=== PATIENT | male | born 1960 | race Caucasian/White ===

== ENCOUNTER 2021-07-30 13:56 | Inpatient (IN) | payer MEDICAID ==
[~2021-07-30] VITALS: Ht 172.7 cm; Wt 80.4 kg
[2021-07-30] MEDS ORDERED: IV NORMAL SALINE 1000 ML BAG IV ONE (14:15)
[2021-07-30 15:43] LABS: CREATININE 0.7 mg/dL (0.6-1.3); POTASSIUM 3.6 mmol/L (3.5-5.1)
[2021-07-30 15:55] LABS: BILIRUBIN,DIRECT 0.2 mg/dL (0.0-0.2); BILIRUBIN,TOTAL 0.5 mg/dL (0.2-1.0); TOTAL PROTEIN, SERUM 7.2 g/dL (6.4-8.2)
[2021-07-30 16:03] LABS: *BILIRUBIN,URIN NEGATIVE (NEGATIVE); *BLOOD, URINE 2+ (NEGATIVE); *CLARITY,URINE SLIGHTLY CLOUDY (CLEAR); *COLOR,URINE YELLOW (YELLOW); *KETONES,URINE NEGATIVE (NEGATIVE); *UROBILINOGEN,URINE 0.2 E.U./dl (NORMAL); LEUKOCYTE ESTERASE ,URINE 1+ (NEGATIVE); NITRITE, URINE POSITIVE (NEGATIVE); UGLUCOSE NEGATIVE (NEGATIVE)
[2021-07-30 16:16] LABS: WBC,URINE 50-80 /HPF (0-3)
[2021-07-30 16:17] LABS: MUCUS,URINE FEW /LPF (0-FEW); SQUAMOUS EPITHELIAL CELL,UR NONE SEEN /HPF (NONE SEEN)
[2021-07-30 16:18] LABS: BACTERIA,URINE MODERATE /HPF (NONE SEEN)
[2021-07-30 16:23] LABS: HEMATOCRIT 23.7 % (36.7-47.1); MEAN CORPUSCULAR HEMOGLOBIN 27.4 uug (23.8-33.4); MEAN CORPUSCULAR VOLUME 84.2 fL (73.0-96.2); PLATELET COUNT (AUTO) 284 K/uL (152-348)
[2021-07-30] MEDS ORDERED: IV NS 1000 ML 1,000 ML IV ONE (16:45)
[2021-07-30] MEDS ORDERED: MEROPENEM 1,000 MG in IV NORMAL SALINE 100 ML IV ONE (16:45)
[2021-07-30] MEDS ORDERED: MEROPENEM 1GM/NS 100ML IVPB **ER PYXIS ONLY IV ONE (16:57)
[2021-07-30] MEDS ORDERED: AZITHROMYCIN IV 500 MG in IV DEXTROSE 5% 250 ML IV ONE (18:00)
[2021-07-30] MEDS ORDERED: AZITHROMYCIN 500MG/ D5W 250ML IVPB **ER PYXIS ONLY IV ONE (18:13)
[2021-07-31 02:00] VITALS: BP 90/50
[2021-07-31] MEDS ORDERED: MEROPENEM 0.5 G in IV NORMAL SALINE 50 ML IV ONE ×2 (04:15→12:00)
[2021-07-31] MEDS ORDERED: MEROPENEM 500MG/NS 50ML PB ***ER PYXIS ONLY IV ONE (04:43)
[2021-07-31 04:51] VITALS: BP 98/50
[2021-07-31] MEDS ORDERED: CEFTRIAXONE 1 G in IV DEXTROSE 5% 50 ML IV SCH ×2 (05:30→09:00)
[2021-07-31] MEDS ORDERED: MEROPENEM 0.5 G in IV NORMAL SALINE 50 ML IV SCH (06:00)
[2021-07-31 08:25] LABS: HEMATOCRIT 22.8 % (36.7-47.1); MEAN CORPUSCULAR HEMOGLOBIN 27.4 uug (23.8-33.4); MEAN CORPUSCULAR VOLUME 84.5 fL (73.0-96.2); PLATELET COUNT (AUTO) 285 K/uL (152-348)
[2021-07-31 08:26] LABS: CARBON DIOXIDE 26 mmol/L (21-32); CHLORIDE 106 mmol/L (98-107); CREATININE 0.6 mg/dL (0.6-1.3); GLUCOSE 134 mg/dL (74-106); POTASSIUM 3.2 mmol/L (3.5-5.1); UREA NITROGEN, BLOOD 44 mg/dL (7-18)
[2021-07-31] MEDS ORDERED: CEFTRIAXONE 1 G VIAL IV SCH (09:00)
[2021-07-31] MEDS ORDERED: CHOL4PAC2 GT (11:32)
[2021-07-31] MEDS ORDERED: RIVA10TA PO (11:32)
[2021-07-31] MEDS ORDERED: SERT25TA PO (11:32)
[2021-07-31] MEDS ORDERED: FINA5TAB11 PO (11:32)
[2021-07-31] MEDS ORDERED: SACC250C PO (11:32)
[2021-07-31] MEDS ORDERED: FERR325T28 PO (11:32)
[2021-07-31] MEDS ORDERED: QUET25TA PO (11:32)
[2021-07-31] MEDS ORDERED: PIPE3.379 IV (11:32)
[2021-07-31] MEDS ORDERED: METO25TA6 PO (11:32)
[2021-07-31] MEDS ORDERED: BETH25TA2 GT (11:32)
[2021-07-31] MEDS ORDERED: FERR325T28 (11:32)
[2021-07-31] MEDS ORDERED: FAMO20TA8 PO (11:32)
[2021-07-31 12:21] VITALS: BP 99/55
[2021-07-31] MEDS: POTASSIUM CHLORIDE 50 ML IV SCH ×4 (12:26→19:24)
[2021-07-31] MEDS ORDERED: FERR300L GT (12:48)
[2021-07-31 16:10] VITALS: BP 102/57
[2021-07-31] MEDS: AZITHROMYCIN 250 MG TABLET GT SCH (17:38)
[2021-07-31] MEDS ORDERED: AZITHROMYCIN IV 500 MG in IV DEXTROSE 5% 250 ML IV SCH ×2 (18:00→21:00)
[2021-07-31 20:00] VITALS: BP 98/31
[2021-07-31] MEDS: PIPERACILLIN SODIUM/TAZOBACTAM 3.375 G in IV DEXTROSE 5% 100 ML IV SCH (21:26)
[2021-08-01] VITALS: BP 98/39
[2021-08-01] MEDS ORDERED: VANCOMYCIN IV 1,500 MG in IV DEXTROSE 5% 500 ML IV ONE (00:30)
[2021-08-01] MEDS ORDERED: VANCOMYCIN 1000 MG VIAL ONE (01:47)
[2021-08-01] MEDS ORDERED: VANCOMYCIN HCL 500 MG VIAL ONE (01:47)
[2021-08-01 04:00] VITALS: BP 100/39
[2021-08-01] MEDS: PIPERACILLIN SODIUM/TAZOBACTAM 3.375 G in IV DEXTROSE 5% 100 ML IV SCH ×2 (06:00→22:42)
[2021-08-01] MEDS ORDERED: VANCOMYCIN IV 1,000 MG in IV DEXTROSE 5% 250 ML IV SCH (10:00)
[2021-08-01 12:00] VITALS: BP 86/46
[2021-08-01 15:08] LABS: CARBON DIOXIDE 26 mmol/L (21-32); CHLORIDE 107 mmol/L (98-107); CREATININE 0.6 mg/dL (0.6-1.3); GLUCOSE 160 mg/dL (74-106); POTASSIUM 3.5 mmol/L (3.5-5.1); UREA NITROGEN, BLOOD 38 mg/dL (7-18)
[2021-08-01 16:00] VITALS: BP 89/50
[2021-08-01] MEDS: FERROUS SULFATE 300 MG/5 ML LIQUID UDC GT SCH (16:03)
[2021-08-01] MEDS: ARGININE/GLUTAMINE/CALCIUM BMB 1 EACH POWD.PACK GT SCH (16:04)
[2021-08-01] MEDS: CHOLESTYRAMINE/SUCROSE 4 GM PACKET XX SCH (16:04)
[2021-08-01] MEDS: FAMOTIDINE 20 MG TABLET PO SCH (16:04)
[2021-08-01] MEDS: AZITHROMYCIN 250 MG TABLET GT SCH (17:05)
[2021-08-01] MEDS: ACETAMINOPHEN 650 MG/20.3 ML LIQUID UDC GT PRN (17:06)
[2021-08-01] MEDS: RIVAROXABAN 10 MG TABLET PO SCH (20:34)
[2021-08-01] MEDS: SERTRALINE HCL 50 MG TABLET PO SCH (20:35)
[2021-08-01] MEDS: QUETIAPINE FUMARATE 25 MG TABLET PO SCH (20:35)
[2021-08-01] MEDS: METOPROLOL TARTRATE 25 MG TABLET PO SCH (20:37)
[2021-08-01] MEDS: VANCOMYCIN IV 1,000 MG in IV DEXTROSE 5% 250 ML IV SCH (21:34)
[2021-08-01 21:37] VITALS: BP 120/54
[2021-08-02 00:04] VITALS: BP 100/41
[2021-08-02 04:12] VITALS: BP 97/45
[2021-08-02] MEDS: PIPERACILLIN SODIUM/TAZOBACTAM 3.375 G in IV DEXTROSE 5% 100 ML IV SCH (05:37)
[2021-08-02] MEDS: VANCOMYCIN IV 1,000 MG in IV DEXTROSE 5% 250 ML IV SCH ×3 (05:37→23:00)
[2021-08-02] MEDS: METOPROLOL TARTRATE 25 MG TABLET PO SCH ×2 (09:00→21:00)
[2021-08-02 09:34] LABS: CARBON DIOXIDE 26 mmol/L (21-32); CHLORIDE 107 mmol/L (98-107); CREATININE 0.5 mg/dL (0.6-1.3); GLUCOSE 145 mg/dL (74-106); POTASSIUM 2.9 mmol/L (3.5-5.1); UREA NITROGEN, BLOOD 30 mg/dL (7-18)
[2021-08-02] MEDS: FERROUS SULFATE 300 MG/5 ML LIQUID UDC GT SCH ×2 (09:50→15:53)
[2021-08-02] MEDS: QUETIAPINE FUMARATE 25 MG TABLET PO SCH ×2 (09:51→21:39)
[2021-08-02] MEDS: CHOLESTYRAMINE/SUCROSE 4 GM PACKET XX SCH ×2 (09:51→15:54)
[2021-08-02] MEDS: FAMOTIDINE 20 MG TABLET PO SCH ×2 (09:51→15:53)
[2021-08-02] MEDS: FINASTERIDE 5 MG TABLET PO SCH (09:51)
[2021-08-02] MEDS: ARGININE/GLUTAMINE/CALCIUM BMB 1 EACH POWD.PACK GT SCH ×2 (10:01→15:54)
[2021-08-02 11:00] VITALS: BP 105/50
[2021-08-02] MEDS: POTASSIUM CHLORIDE 50 ML IV SCH ×4 (13:35→16:15)
[2021-08-02] MEDS: PIPERACILLIN SODIUM/TAZOBACTAM 3.375 G in IV DEXTROSE 5% 50 ML IV SCH ×2 (13:39→22:14)
[2021-08-02] MEDS: AZITHROMYCIN 250 MG TABLET GT SCH (15:53)
[2021-08-02 16:00] VITALS: BP 95/45
[2021-08-02 20:00] VITALS: BP 94/56
[2021-08-02] MEDS: ACETAMINOPHEN 650 MG/20.3 ML LIQUID UDC GT PRN (21:00)
[2021-08-02] MEDS: SERTRALINE HCL 50 MG TABLET PO SCH (21:39)
[2021-08-02] MEDS: RIVAROXABAN 10 MG TABLET PO SCH (21:42)
[2021-08-02] MEDS: SODIUM HYPOCHLORITE 0.25% (HALF STRENGTH) 480 ML BOTTLE TOP SCH (23:05)
[2021-08-03] MEDS: PIPERACILLIN SODIUM/TAZOBACTAM 3.375 G in IV DEXTROSE 5% 50 ML IV SCH ×2 (05:00→12:14)
[2021-08-03] MEDS: VANCOMYCIN IV 1,000 MG in IV DEXTROSE 5% 250 ML IV SCH (05:15)
[2021-08-03 06:43] LABS: HEMATOCRIT 24.7 % (36.7-47.1); MEAN CORPUSCULAR HEMOGLOBIN 26.8 uug (23.8-33.4); PLATELET COUNT (AUTO) 292 K/uL (152-348)
[2021-08-03 07:02] VITALS: BP 100/54
[2021-08-03 07:02] LABS: CARBON DIOXIDE 26 mmol/L (21-32); CHLORIDE 107 mmol/L (98-107); CREATININE 0.6 mg/dL (0.6-1.3); GLUCOSE 120 mg/dL (74-106); MAGNESIUM 2.2 mg/dL (1.8-2.4); PHOSPHOROUS 2.4 mg/dL (2.5-4.9); UREA NITROGEN, BLOOD 22 mg/dL (7-18)
[2021-08-03 08:39] LABS: POTASSIUM 2.7 mmol/L (3.5-5.1)
[2021-08-03] MEDS: FAMOTIDINE 20 MG TABLET PO SCH ×2 (08:41→16:20)
[2021-08-03] MEDS: FINASTERIDE 5 MG TABLET PO SCH (08:41)
[2021-08-03] MEDS: QUETIAPINE FUMARATE 25 MG TABLET PO SCH ×2 (08:41→20:52)
[2021-08-03] MEDS: METOPROLOL TARTRATE 25 MG TABLET PO SCH ×2 (09:00→20:54)
[2021-08-03] MEDS: CHOLESTYRAMINE/SUCROSE 4 GM PACKET XX SCH ×2 (09:34→16:20)
[2021-08-03] MEDS: ARGININE/GLUTAMINE/CALCIUM BMB 1 EACH POWD.PACK GT SCH ×2 (09:35→16:20)
[2021-08-03] MEDS: FERROUS SULFATE 300 MG/5 ML LIQUID UDC GT SCH ×2 (09:35→16:19)
[2021-08-03] MEDS: SODIUM HYPOCHLORITE 0.25% (HALF STRENGTH) 480 ML BOTTLE TOP SCH (09:35)
[2021-08-03 12:00] VITALS: BP 96/49
[2021-08-03] MEDS: POTASSIUM CHLORIDE 50 ML IV SCH ×8 (12:14→20:28)
[2021-08-03] MEDS: CEFEPIME HCL 1 G in IV DEXTROSE 5% 50 ML IV SCH (16:04)
[2021-08-03 16:07] VITALS: BP 98/50
[2021-08-03] MEDS ORDERED: NEUTRA PHOS PACKET PO ONE (16:15)
[2021-08-03] MEDS: SERTRALINE HCL 50 MG TABLET PO SCH (20:52)
[2021-08-03] MEDS: ACIDOPHILUS/BULGARICUS CHEW TAB GT SCH (20:52)
[2021-08-03] MEDS: RIVAROXABAN 10 MG TABLET PO SCH (20:53)
[2021-08-03 20:59] VITALS: BP 80/39
[2021-08-03] MEDS ORDERED: VITAL AF 1.2 1,000 ML LIQUID GT PRN (21:30)
[2021-08-03 22:50] VITALS: BP 87/50
[2021-08-03] MEDS ORDERED: IV NORMAL SALINE 250 ML IV ONE (23:00)
[2021-08-04] MEDS: CEFEPIME HCL 1 G in IV DEXTROSE 5% 50 ML IV SCH ×3 (00:20→16:28)
[2021-08-04 04:32] VITALS: BP 157/65
[2021-08-04 07:21] LABS: HEMATOCRIT 24.6 % (36.7-47.1); MEAN CORPUSCULAR HEMOGLOBIN 26.7 uug (23.8-33.4); MEAN CORPUSCULAR VOLUME 83.7 fL (73.0-96.2); PLATELET COUNT (AUTO) 251 K/uL (152-348)
[2021-08-04 07:37] LABS: CARBON DIOXIDE 26 mmol/L (21-32); CHLORIDE 111 mmol/L (98-107); CREATININE 0.4 mg/dL (0.6-1.3); GLUCOSE 114 mg/dL (74-106); MAGNESIUM 2.3 mg/dL (1.8-2.4); PHOSPHOROUS 2.8 mg/dL (2.5-4.9); POTASSIUM 3.6 mmol/L (3.5-5.1); UREA NITROGEN, BLOOD 19 mg/dL (7-18); VANCOMYCIN,RANDOM 17.6 ug/mL (18.0-26.0)
[2021-08-04] MEDS ORDERED: VANCOMYCIN IV 750 MG in IV DEXTROSE 5% 250 ML IV ONE (08:00)
[2021-08-04] MEDS: METOPROLOL TARTRATE 25 MG TABLET PO SCH ×2 (09:00→20:20)
[2021-08-04] MEDS: FAMOTIDINE 20 MG TABLET PO SCH ×2 (09:17→17:19)
[2021-08-04] MEDS: ACIDOPHILUS/BULGARICUS CHEW TAB GT SCH ×2 (09:17→20:12)
[2021-08-04] MEDS: FERROUS SULFATE 300 MG/5 ML LIQUID UDC GT SCH ×2 (09:17→17:20)
[2021-08-04] MEDS: FINASTERIDE 5 MG TABLET PO SCH (09:17)
[2021-08-04] MEDS: QUETIAPINE FUMARATE 25 MG TABLET PO SCH ×2 (09:17→20:12)
[2021-08-04] MEDS: SODIUM HYPOCHLORITE 0.25% (HALF STRENGTH) 480 ML BOTTLE TOP SCH (09:18)
[2021-08-04] MEDS: ARGININE/GLUTAMINE/CALCIUM BMB 1 EACH POWD.PACK GT SCH ×2 (09:29→17:21)
[2021-08-04] MEDS: CHOLESTYRAMINE/SUCROSE 4 GM PACKET XX SCH ×2 (09:30→17:21)
[2021-08-04 11:41] VITALS: BP 91/53
[2021-08-04 15:32] VITALS: BP 96/49
[2021-08-04] MEDS: ACETAMINOPHEN 650 MG/20.3 ML LIQUID UDC GT PRN (17:37)
[2021-08-04 20:00] VITALS: BP 96/47
[2021-08-04] MEDS: SERTRALINE HCL 50 MG TABLET PO SCH (20:12)
[2021-08-04] MEDS: RIVAROXABAN 10 MG TABLET PO SCH (20:16)
[2021-08-05] MEDS: CEFEPIME HCL 1 G in IV DEXTROSE 5% 50 ML IV SCH ×3 (00:16→16:30)
[2021-08-05 04:00] VITALS: BP 98/54
[2021-08-05 06:48] LABS: HEMATOCRIT 24.5 % (36.7-47.1); MEAN CORPUSCULAR HEMOGLOBIN 26.2 uug (23.8-33.4); MEAN CORPUSCULAR VOLUME 84.2 fL (73.0-96.2); PLATELET COUNT (AUTO) 279 K/uL (152-348)
[2021-08-05 07:34] LABS: CARBON DIOXIDE 25 mmol/L (21-32); CHLORIDE 109 mmol/L (98-107); CREATININE 0.4 mg/dL (0.6-1.3); GLUCOSE 123 mg/dL (74-106); POTASSIUM 3.2 mmol/L (3.5-5.1); UREA NITROGEN, BLOOD 19 mg/dL (7-18); VANCOMYCIN,RANDOM 13.6 ug/mL (18.0-26.0)
[2021-08-05 08:15] VITALS: BP 110/53
[2021-08-05] MEDS: METOPROLOL TARTRATE 25 MG TABLET PO SCH (09:00)
[2021-08-05] MEDS ORDERED: VANCOMYCIN IV 1,000 MG in IV DEXTROSE 5% 250 ML IV ONE (09:00)
[2021-08-05] MEDS: FERROUS SULFATE 300 MG/5 ML LIQUID UDC GT SCH ×2 (09:11→17:23)
[2021-08-05] MEDS: FAMOTIDINE 20 MG TABLET PO SCH ×2 (09:11→17:23)
[2021-08-05] MEDS: ACIDOPHILUS/BULGARICUS CHEW TAB GT SCH (09:11)
[2021-08-05] MEDS: FINASTERIDE 5 MG TABLET PO SCH (09:11)
[2021-08-05] MEDS: QUETIAPINE FUMARATE 25 MG TABLET PO SCH (09:11)
[2021-08-05] MEDS: ARGININE/GLUTAMINE/CALCIUM BMB 1 EACH POWD.PACK GT SCH ×2 (09:12→17:24)
[2021-08-05] MEDS: CHOLESTYRAMINE/SUCROSE 4 GM PACKET XX SCH ×2 (09:15→17:23)
[2021-08-05] MEDS: SODIUM HYPOCHLORITE 0.25% (HALF STRENGTH) 480 ML BOTTLE TOP SCH (09:16)
[2021-08-05] MEDS ORDERED: POTASSIUM CHLORIDE 20 MEQ POWDER PACKET GT ONE (11:15)
[2021-08-05 12:00] VITALS: BP 105/48
[2021-08-05] MEDS ORDERED: RXVAN XX (13:31)
[2021-08-05] MEDS ORDERED: NUTR1PAC14 GT (13:31)
[2021-08-05] MEDS ORDERED: ACID1TAB4 GT (13:31)
[2021-08-05] MEDS ORDERED: NUT.237L65 GT (13:31)
[2021-08-05] MEDS ORDERED: SODI480S2 TOP (13:31)
[2021-08-05] MEDS ORDERED: CEFE1FRO IV (13:31)
[2021-08-05 16:00] VITALS: BP 119/59
== END 2021-08-05 19:40 | DRG 710 ==
LOC: ER 13:56 → TELE3 07-31 01:23 → MEDSURG3 08-02 10:50
PROVIDERS: ADMIT Nurse Practitioner Acute Care; ATTEND Nurse Practitioner Acute Care
PROC: 5A1955Z Respiratory Ventilation, Greater than 96 Consecutive Hours (ICD-10-PCS; 2021-07-31)
PROC: 05HY33Z Insertion of Infusion Device into Upper Vein, Percutaneous Approach (ICD-10-PCS; 2021-08-02)
PROC: 0KBN0ZZ Excision of Right Hip Muscle, Open Approach (ICD-10-PCS; principal; 2021-08-03)
PROC: 0KBP0ZZ Excision of Left Hip Muscle, Open Approach (ICD-10-PCS; 2021-08-03)
PROC: 02HV33Z Insertion of Infusion Device into Superior Vena Cava, Percutaneous Approach (ICD-10-PCS; 2021-08-05)
PROC: B548ZZA Ultrasonography of Superior Vena Cava, Guidance (ICD-10-PCS; 2021-08-05)
DX: A41.9 Sepsis, unspecified organism (principal); N17.0 Acute kidney failure with tubular necrosis; J96.21 Acute and chronic respiratory failure with hypoxia; G82.50 Quadriplegia, unspecified; G93.41 Metabolic encephalopathy; E43 Unspecified severe protein-calorie malnutrition; L89.154 Pressure ulcer of sacral region, stage 4; D68.59 Other primary thrombophilia; L89.613 Pressure ulcer of right heel, stage 3; R16.2 Hepatomegaly with splenomegaly, not elsewhere classified; L89.324 Pressure ulcer of left buttock, stage 4; E87.1 Hypo-osmolality and hyponatremia; E88.09 Other disorders of plasma-protein metabolism, not elsewhere classified; L89.226 Pressure-induced deep tissue damage of left hip; K21.9 Gastro-esophageal reflux disease without esophagitis; N40.0 Benign prostatic hyperplasia without lower urinary tract symptoms; Z95.0 Presence of cardiac pacemaker; Z93.0 Tracheostomy status; Z74.09 Other reduced mobility; N13.2 Hydronephrosis with renal and ureteral calculous obstruction; R13.10 Dysphagia, unspecified; Z93.1 Gastrostomy status; E87.6 Hypokalemia; I50.33 Acute on chronic diastolic (congestive) heart failure; I42.9 Cardiomyopathy, unspecified; K52.9 Noninfective gastroenteritis and colitis, unspecified
CPT/HCPCS: 36415; 70030-TC; 71045; 83605; 83735; 84100; 85025; 85730; 87040; 87077; 87086; 93005; 94003; 94760; A4217; A4663; A6209; G0378; J0456; J0692; J0696; J2185; J2543; J3370; J3480; J3490; J7030; J7040; J7042; J7060; J7120; Q0144; U0003